=== PATIENT | female | born 1980 | race Caucasian/White ===

== ENCOUNTER 2019-08-25 03:49 | Emergency (ER) | payer SELFPAY ==
[~2019-08-25] VITALS: Ht 172.7 cm; Wt 57.6 kg
[2019-08-25 04:08] VITALS: BP_SYST 123
[2019-08-25] MEDS ORDERED: DIPHENHYDRAMINE INJ 50 MG/ML VIAL IM ONE (04:45)
[2019-08-25] MEDS ORDERED: KETOROLAC TROMETHAMINE 60 MG/2 ML VIAL IM ONE (04:45)
[2019-08-25] MEDS ORDERED: MORPHINE SULFATE 10 MG/ML VIAL IM ONE (04:45)
[2019-08-25 05:16] VITALS: BP_SYST 122
== END 2019-08-25 05:19 | disposition home or self-care (01) ==
LOC: SED 03:49
DX: M54.41 Lumbago with sciatica, right side (principal)
CPT/HCPCS: 96372; 99284; J1200; J1885; J2270